=== PATIENT | female | born 1970 | race Caucasian/White ===

== ENCOUNTER 2018-11-25 14:25 | Emergency (ER) | payer OTHER ==
[2018-11-25] MEDS ORDERED: ACETAMINOPHEN 325 MG TABLET ONE (16:53)
[2018-11-25] MEDS ORDERED: IBUPROFEN 400 MG TAB ONE (16:53)
--- NOTE | 2018-11-25 17:26 | RAD REPORT ---
EXAM DESCRIPTION: RAD - Pelvis - 11/25/2018 4:47 pm CLINICAL HISTORY: Pelvic pain status post injury FINDINGS: No fracture or dislocation is seen.
--- NOTE | 2018-11-25 17:28 | RAD REPORT ---
EXAM DESCRIPTION: RAD - Femur Left - 11/25/2018 4:46 pm CLINICAL HISTORY: Left leg pain FINDINGS: No fracture seen
--- NOTE | 2018-11-25 17:45 | ER ---
Nurse's Notes [facility] Name: Diane Soares Age: 48 yrs Sex: Female : 1970 Arrival Date: 11/25/2018 Time: 14:30 Bed 13 Private MD: Diagnosis: Fall on same level from slipping, tripping and stumbling;Pain in left leg-upper from fall Presentation: 11/25 14:36 Presenting complaint: Patient states: "I fell the other day and I already have problems aj1 with my knees. Now my thigh is hurting, the skin feel bruised and so is my knee" Reports that she fell yesterday. Reports pain to left thigh, left knee, back. Denies hitting head, denies LOC. Transition of care: patient was not received from another setting of care. Onset of symptoms was November 24, 2018. Risk Assessment: Do you want to hurt yourself or someone else? Patient reports no desire to harm self or others. Initial Sepsis Screen: Does the patient meet any 2 criteria? No. Patient's initial sepsis screen is negative. Does the patient have a suspected source of infection? No. Patient's initial sepsis screen is negative. Care prior to arrival: None. 14:36 Method Of Arrival: Wheelchair aj1 14:36 Acuity: FOREST 4 aj1 Triage Assessment: 14:39 General: Appears in no apparent distress. uncomfortable, Behavior is calm, cooperative, aj1 appropriate for age. Pain: Complains of pain in back and left leg. Neuro: Level of Consciousness is awake, alert, obeys commands. Cardiovascular: Patient's skin is warm and dry. Respiratory: Airway is patent Respiratory effort is even, unlabored, Respiratory pattern is regular, symmetrical. 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 - Social history:: Smoking status: Patient uses tobacco products, 3 cigarettes per day. - Ebola Screening: : Patient denies travel to an Ebola-affected area in the 21 days before illness onset. Screenin:48 Abuse screen: Denies threats or abuse. Denies injuries from another. Nutritional bp screening: No deficits noted. Tuberculosis screening: No symptoms or risk factors identified. Fall Risk None identified. Assessment: 16:10 General: SEE TRIAGE NOTE. bp 16:48 Reassessment: PT RETURNED FROM XRAY. bp Vital Signs: 14:39 BP 101 / 76; Pulse 78; Resp 18; Temp 97.8; Pulse Ox 98% on R/A; Weight 57.15 kg (R); aj1 Height 5 ft. 1 in. (154.94 cm) (R); Pain 8/10; 16:00 BP 121 / 71; Pulse 75; Resp 16; Temp 98; Pulse Ox 98% ; bp 18:08 BP 113 / 75; Pulse 72; Resp 16; Temp 98; Pulse Ox 98% ; bp 14:39 Body Mass Index 23.81 (57.15 kg, 154.94 cm) aj1 ED Course: 14:30 Patient arrived in ED. as 14:37 Triage completed. aj1 14:39 Arm band placed on Patient placed in waiting room, Patient notified of wait time. aj1 16:09 Ronald Carvalho PA is PHCP. cp 16:09 Aubrey Santos MD is Attending Physician. cp 16:11 Mark Albert, NILE is Primary Nurse. bp 16:44 XRAY Pelvis In Process Unspecified. EDMS 16:44 XRAY Femur LEFT In Process Unspecified. EDMS 16:45 Patient moved back from radiology. ml 16:48 Patient has correct armband on for positive identification. Bed in low position. Call bp light in reach. Side rails up X2. 18:08 No provider procedures requiring assistance completed. Patient did not have IV access bp during this emergency room visit. Administered Medications: 16:58 Not Given (Patient Refused): Tylenol 650 mg PO once bp 16:59 Not Given (Patient Refused): Ibuprofen 800 mg PO once; if not truly allergic bp Outcome: 17:45 Discharge ordered by . cp 18:09 Discharged to home with crutches, with family. bp 18:09 Condition: stable 18:09 Discharge instructions given to patient, Instructed on discharge instructions, follow up and referral plans. medication usage, crutch walking, Demonstrated understanding of instructions, follow-up care, medications, crutch walking, Prescriptions given X 3. 18:10 Patient left the ED. bp Signatures: Dispatcher [employer] EDBella Silvestre, RN RN aj1 Rae Damon Melissa ml Page, Corey, PA PA Mark Billingsley, RN RN bp
--- NOTE | 2018-11-25 17:46 | EDPHYS ---
Physician Documentation [facility] Name: Diane Soares Age: 48 yrs Sex: Female : 1970 Arrival Date: 11/25/2018 Time: 14:30 Bed 13 Private MD: ED Physician Aubrey Satnos HPI: 11/25 16:35 This 48 yrs old Female presents to ER via Wheelchair with complaints of Fall cp Injury. 16:35 Details of fall: The patient fell from an upright position, while walking. cp 16:35 Onset: The symptoms/episode began/occurred yesterday. Associated injuries: The patient cp sustained left upper leg, painful injury. 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 - Social history:: Smoking status: Patient uses tobacco products, 3 cigarettes per day. - Ebola Screening: : Patient denies travel to an Ebola-affected area in the 21 days before illness onset. ROS: 16:45 Constitutional: Negative for body aches, chills, fever. cp 16:45 Eyes: Negative for injury, pain, redness, and discharge. cp 16:45 ENT: Negative for drainage from ear(s), ear pain, sore throat, difficulty swallowing, difficulty handling secretions. 16:45 Cardiovascular: Negative for chest pain. 16:45 Respiratory: Negative for cough, wheezing. 16:45 Abdomen/GI: Negative for abdominal pain. 16:45 Back: Negative for decreased range of motion. 16:45 MS/extremity: Positive for pain, tenderness, of the left upper leg, Negative for decreased range of motion, deformity. 16:45 Neuro: Positive for of the left upper leg, burning, Negative for altered mental status, headache. 16:45 All other systems are negative. Exam: 16:50 Constitutional: The patient appears in no acute distress, alert, awake, well developed, cp well nourished. 16:50 Head/Face: Normocephalic, atraumatic. cp 16:50 Back: vertebral tenderness, is not appreciated. 16:50 Musculoskeletal/extremity: Extremities: grossly normal except: noted in the left upper leg: pain, tenderness, There is no evidence of decreased ROM, deformity, ROM: limited passive range of motion due to pain, in the left upper leg, Perfusion: the extremity is normally perfused throughout, Sensation intact. 16:50 Skin: cellulitis, is not appreciated, no rash present. Vital Signs: 14:39 BP 101 / 76; Pulse 78; Resp 18; Temp 97.8; Pulse Ox 98% on R/A; Weight 57.15 kg (R); aj1 Height 5 ft. 1 in. (154.94 cm) (R); Pain 8/10; 16:00 BP 121 / 71; Pulse 75; Resp 16; Temp 98; Pulse Ox 98% ; bp 18:08 BP 113 / 75; Pulse 72; Resp 16; Temp 98; Pulse Ox 98% ; bp 14:39 Body Mass Index 23.81 (57.15 kg, 154.94 cm) aj MDM: 16:23 Patient medically screened. cp 16:35 Differential diagnosis: fracture, contusion. cp 17:44 Data reviewed: vital signs, nurses notes, radiologic studies, plain films. cp 17:44 Test interpretation: by ED physician or midlevel provider: plain radiologic studies. cp Counseling: I had a detailed discussion with the patient and/or guardian regarding: the historical points, exam findings, and any diagnostic results supporting the discharge/admit diagnosis, radiology results, to return to the emergency department if symptoms worsen or persist or if there are any questions or concerns that arise at home. 11/25 16:32 Order name: XRAY Pelvis; Complete Time: 17:42 cp 11/25 17:41 Interpretation: Report reviewed. cp 11/25 16:32 Order name: XRAY Femur LEFT; Complete Time: 17:42 cp 11/25 17:42 Interpretation: Reviewed. cp Administered Medications: 16:58 Not Given (Patient Refused): Tylenol 650 mg PO once bp 16:59 Not Given (Patient Refused): Ibuprofen 800 mg PO once; if not truly allergic bp Disposition: 11/25/18 17:45 Discharged to Home. Impression: Fall on same level from slipping, tripping and stumbling, Pain in left leg - upper from fall. - Condition is Stable. - Discharge Instructions: Musculoskeletal Pain. - Prescriptions for Cyclobenzaprine 10 mg Oral Tablet - take 1 tablet by ORAL route every 8 hours As needed no driving while taking medication; 15 tablet. Tramadol 50 mg Oral Tablet - take 1 tablet by ORAL route every 8 hours as needed; 12 tablet. - Medication Reconciliation Form, Thank You Letter, Antibiotic Education, Prescription Opioid Use form. - Follow up: Private Physician; When: 2 - 3 days; Reason: Worsening of condition. - Problem is new. - Symptoms have improved. Addendum: 11/28/2018 09:11 Co-signature as Attending Physician, Aubrey Santos MD I agree with the assessment and k dr plan of care. Signatures: Dispatcher [employer] EDBella Silvestre RN RN aj1 Aubrey Santos MD MD [facility] Ronald Carvalho PA PA cp Mark Albert RN RN bp Corrections: (The following items were deleted from the chart) 11/25 18:10 17:45 11/25/2018 17:45 Discharged to Home. Impression: Fall on same level from bp slipping, tripping and stumbling; Pain in left leg - upper from fall. Condition is Stable. Forms are Medication Reconciliation Form, Thank You Letter, Antibiotic Education, Prescription Opioid Use. Follow up: Private Physician; When: 2 - 3 days; Reason: Worsening of condition. Problem is new. Symptoms have improved. cp
[2018-11-25 19:22] VITALS: O2SAT 98
[2018-11-25 19:25] VITALS: TEMP 98
[2018-11-25 19:26] VITALS: BP 113/75
== END 2018-11-25 18:10 | disposition home or self-care (01) ==
LOC: ER 14:25
DX: M79.652 Pain in left thigh (principal); W01.0XXA Fall on same level from slipping, tripping and stumbling without subsequent striking against object, initial encounter; Y93.01 Activity, walking, marching and hiking; Y92.9 Unspecified place or not applicable; F31.9 Bipolar disorder, unspecified; Z72.0 Tobacco use; Z88.0 Allergy status to penicillin; Z88.2 Allergy status to sulfonamides; Z88.5 Allergy status to narcotic agent; Z88.6 Allergy status to analgesic agent
CPT/HCPCS: 72170; 99283

== ENCOUNTER 2023-09-07 08:23 | Emergency (ER) | payer OTHER ==
[2023-09-07 09:38] LABS: SARS-CoV-2 Antigen CONTROL BLUE LINE VIS/BG OK; SARS-CoV-2 Antigen Rapid Res Negative (Negative)
--- NOTE | 2023-09-07 09:40 | ER ---
Nurse's Notes [facility] Name: Diane Soares Age: 53 yrs Sex: Female : 1970 Arrival Date: 09/07/2023 Time: 08:23 Bed 12 Private MD: Diagnosis: Viral illness, COVID-19 exposure Presentation: 09/06 08:36 Chief complaint: Patient states: her tested positive for COVID yesterday and ap3 she has had symptoms for approx one week. patient reports cough, shortness of breath and body aches during this time. Coronavirus screen: Client presents with at least one sign or symptom that may indicate coronavirus-19. Ebola Screen: No symptoms or risks identified at this time. Initial Sepsis Screen: Does the patient meet any 2 criteria? HR > 90 bpm. Does the patient have a suspected source of infection? No. Patient's initial sepsis screen is negative. Risk Assessment: Do you want to hurt yourself or someone else? Patient reports no desire to harm self or others. Onset of symptoms is unknown. 08:36 Method Of Arrival: Ambulatory ap3 08:36 Acuity: FOREST 4 ap3 Triage Assessment: 08:37 General: Appears in no apparent distress. Behavior is calm, cooperative, appropriate ap3 for age, Reports fatigue for. Pain: Complains of pain in generalized body aches. Neuro: Level of Consciousness is awake, alert, obeys commands, Oriented to person, place, time, situation. Cardiovascular: Patient's skin is warm and dry. Respiratory: Reports cough that is Airway is patent Respiratory effort is even, unlabored, Respiratory pattern is regular, symmetrical. 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 - Infectious Disease History:: Denies. - Social history:: Smoking status: Patient reports the use of cigarette tobacco products, smokes one pack cigarettes per day. Screenin:38 [facility] ED Fall Risk Assessment (Adult) History of falling in the last 3 months, ap3 including since admission No falls in past 3 months (0 pts) Confusion or Disorientation No (0 pts) Intoxicated or Sedated No (0 pts) Impaired Gait No (0 pts) Mobility Assist Device Used No (0 pt) Altered Elimination No (0 pt) Score/Fall Risk Level 0 - 2 = Low Risk Oriented to surroundings, Maintained a safe environment, Educated pt \T\ family on fall prevention, incl call for assistance when getting out of bed, Assessed \T\ reinforced patient's understanding of fall precautions, Provided non-skid footwear, Hourly rounding (assess needs \T\ fall precautionary measures) done, Used ambulatory aids as needed (educated on \T\ assisted with), Used gait belt as appropriate. Abuse screen: Denies threats or abuse. Nutritional screening: No deficits noted. Tuberculosis screening: No symptoms or risk factors identified. Vital Signs: 08:36 BP 125 / 80; Pulse 96; Resp 19; Temp 97.7; Pulse Ox 95% ; Weight 68.04 kg; ap3 ED Course: 08:27 Patient arrived in ED. im 08:37 Triage completed. ap3 08:37 Calin Montes MD is Attending Physician. sp3 08:38 Arm band placed on right wrist. ap3 09:51 Janet Keller RN is Primary Nurse. ap3 09:51 Patient has correct armband on for positive identification. Provided Education on: ap3 discharge instructions. 09:51 No provider procedures requiring assistance completed. Patient did not have IV access ap3 during this emergency room visit. Administered Medications: No medications were administered Medication: 09:51 VIS not applicable for this client. ap3 Outcome: 09:40 Discharge ordered by . sp3 09:51 Discharged to home ambulatory, ap3 09:51 Condition: good 09:51 Discharge instructions given to patient, Instructed on discharge instructions, follow up and referral plans. Demonstrated understanding of instructions, follow-up care, 09:52 Patient left the ED. ap3 Signatures: Janet Keller RN RN ap3 Calin Montes MD MD sp3 Jasmine Rey im
--- NOTE | 2023-09-07 09:40 | EDPHYS ---
Physician Documentation [facility] Name: Diane Soares Age: 53 yrs Sex: Female : 1970 Arrival Date: 09/07/2023 Time: 08:23 Bed 12 Private MD: ED Physician Calin Montes HPI: 09/06 09:30 This 53 yrs old Female presents to ER via Ambulatory with complaints of COVID test. sp3 09:30 53-year-old female with history of COPD, bipolar disease presents to the ED after sp3 COVID-19 exposure 1 week ago also with mild cough. No fever, nausea, vomiting, diarrhea, chest pain, rash, or any other signs or symptoms reported.. 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 - Infectious Disease History:: Denies. - Social history:: Smoking status: Patient reports the use of cigarette tobacco products, smokes one pack cigarettes per day. ROS: 09:32 Constitutional: Negative for fever, chills, and weight loss, Eyes: Negative for injury, sp3 pain, redness, and discharge, Neck: Negative for injury, pain, and swelling, Cardiovascular: Negative for chest pain, palpitations, and edema, Abdomen/GI: Negative for abdominal pain, nausea, vomiting, diarrhea, and constipation, Back: Negative for injury and pain, MS/Extremity: Negative for injury and deformity, Skin: Negative for injury, rash, and discoloration, Neuro: Negative for headache, weakness, numbness, tingling, and seizure, Psych: Negative for depression, anxiety, suicide ideation, homicidal ideation, and hallucinations, Allergy/Immunology: Negative for hives, rash, and allergies, Endocrine: Negative for neck swelling, polydipsia, polyuria, polyphagia, and marked weight changes, Hematologic/Lymphatic: Negative for swollen nodes, abnormal bleeding, and unusual bruising, 09:32 All other systems are negative, Exam: 09:32 Constitutional: This is a well developed, well nourished patient who is awake, alert, sp3 and in no acute distress. Head/Face: Normocephalic, atraumatic. Eyes: Pupils equal round and reactive to light, extra-ocular motions intact. Lids and lashes normal. Conjunctiva and sclera are non-icteric and not injected. Cornea within normal limits. Periorbital areas with no swelling, redness, or edema. ENT: Nares patent. No nasal discharge, no septal abnormalities noted. External auditory canals are clear. Oropharynx with no redness, swelling, or masses, exudates, or evidence of obstruction, uvula midline. Mucous membranes moist. Neck: Trachea midline, no thyromegaly or masses palpated, and no cervical lymphadenopathy. Supple, full range of motion without nuchal rigidity, or vertebral point tenderness. No Meningismus. Chest/axilla: Normal chest wall appearance and motion. Nontender with no deformity. No lesions are appreciated. Cardiovascular: Regular rate and rhythm with a normal S1 and S2. No gallops, murmurs, or rubs. Normal PMI, no JVD. No pulse deficits. Abdomen/GI: Soft, non-tender, with normal bowel sounds. No distension or tympany. No guarding or rebound. No evidence of tenderness throughout. Back: No spinal tenderness. No costovertebral tenderness. Full range of motion. Skin: Warm, dry with normal turgor. Normal color with no rashes, no lesions, and no evidence of cellulitis. MS/ Extremity: Pulses equal, no cyanosis. Neurovascular intact. Full, normal range of motion. Neuro: Awake and alert, GCS 15, oriented to person, place, time, and situation. Cranial nerves II-XII grossly intact. Motor strength 5/5 in all extremities. Sensory grossly intact. Cerebellar exam normal. Normal gait. Psych: Awake, alert, with orientation to person, place and time. Behavior, mood, and affect are within normal limits. 09:32 Respiratory: Mild dry cough consistent with COPD noted. Patient no acute distress. Patient playing on phone during exam with normal vital signs and pulse ox 95% on room air., Vital Signs: 08:36 BP 125 / 80; Pulse 96; Resp 19; Temp 97.7; Pulse Ox 95% ; Weight 68.04 kg; ap3 MDM: 08:45 Patient medically screened. sp3 09:33 Data reviewed: vital signs, nurses notes, lab test result(s). ED course: 53-year-old sp3 female with COVID-19 exposure and mild cough. Differential diagnosis includes viral illness, COPD, COVID-19, flu, among others. Due to normal vital signs and no acute distress, we will obtain viral swabs and disposition accordingly. No pharmacological intervention indicated in the ED.. 09:39 ED course: Negative COVID-19 on this patient however exposure noted. Will quitline counselor sp3 patient on quarantine.. 09/06 08:35 Order name: SARS RAPID ap3 09/06 08:35 Order name: Flu ap3 09/06 08:35 Order name: Strep ap3 09/06 09:06 Order name: Throat Culture EDMS Administered Medications: No medications were administered Disposition Summary: 09/07/23 09:40 Discharge Ordered Notes: Location: Home sp3 Condition: Stable sp3 Diagnosis - Viral illness, COVID-19 exposure sp3 Followup: sp3 - With: Private Physician - When: Upon discharge from the Emergency Department - Reason: Continuance of care Discharge Instructions: - Discharge Summary Sheet sp3 - Viral Illness, Adult sp3 - COVID-19: Quarantine and Isolation - [facility] (06/04/2021) sp3 Forms: - Medication Reconciliation Form sp3 - Antibiotic Education sp3 - Prescription Opioid Use sp3 - Patient Portal Instructions sp3 - Leadership Thank You Letter sp3 Signatures: Dispatcher [employer] EDJanet Dunaway RN RN ap3 Calin Montes MD MD sp3 Corrections: (The following items were deleted from the chart) 08:35 08:35 SARS-COV-2 Antigen Rapid+I.LAB.BRZ ordered. EDMS EDMS 08:35 08:35 Influenza Screen (A \T\ B)+BA.LAB.BRZ ordered. EDMS EDMS 08:35 08:35 Group A Streptococcus Rapid Sc+BA.LAB.BRZ ordered. EDMS EDMS
[2023-09-07 10:17] VITALS: BP 125/80; TEMP 97.7; O2SAT 95
== END 2023-09-07 09:52 | disposition home or self-care (01) ==
LOC: ER 08:23
DX: B34.9 Viral infection, unspecified (principal); J44.9 Chronic obstructive pulmonary disease, unspecified; F17.210 Nicotine dependence, cigarettes, uncomplicated; Z11.52 Encounter for screening for COVID-19; Z20.822 Contact with and (suspected) exposure to COVID-19
CPT/HCPCS: 36415; 87070; 87081; 87804; 87811